=== PATIENT | female | born 1995 | race African-American/Black ===

== ENCOUNTER 2017-03-15 19:33 | Emergency (ER) | payer OTHER ==
[~2017-03-15] VITALS: Ht 167.6 cm; Wt 60.3 kg
[~2017-03-15 19:33] MED LIST: ALBUTEROL2.5 MG/0.1 INH; AMOXICILLIN 50500 MG PO; IBUPROFEN 200200 M1 PO; IBUPROFEN 600600 M1 PO
[2017-03-15] MEDS ORDERED: ACETAMINOPHEN325 M3 PO (19:59)
[2017-03-15] MEDS ORDERED: ACCUNEB SO1.25 MG/1 (20:00)
[2017-03-16 02:04] VITALS: BP 131/88
== END 2017-03-16 09:22 | disposition home or self-care (01) ==
LOC: ER 19:33
DX: Z53.21 Procedure and treatment not carried out due to patient leaving prior to being seen by health care provider (principal)

== ENCOUNTER 2017-11-12 07:03 | Emergency (ER) | payer OTHER ==
[~2017-11-12] VITALS: Ht 167.6 cm; Wt 60.8 kg
[~2017-11-12 07:03] MED LIST changes: +ACCUNEB SO1.25 MG/1; +ACETAMINOPHEN325 M3 PO
[2017-11-12 07:11] VITALS: BP 108/66
[2017-11-12] MEDS ORDERED: AMOXICILLIN 50500 M1 PO (07:15)
[2017-11-12] MEDS ORDERED: PROAIR HFA8.5 GM INH (07:19)
== END 2017-11-12 07:35 | disposition home or self-care (01) ==
LOC: ER 07:03
DX: J02.0 Streptococcal pharyngitis (principal); G43.909 Migraine, unspecified, not intractable, without status migrainosus; J45.909 Unspecified asthma, uncomplicated; Z91.018 Allergy to other foods

== ENCOUNTER 2018-01-18 19:58 | Emergency (ER) | payer OTHER ==
[~2018-01-18] VITALS: Ht 167.6 cm; Wt 60.3 kg
[~2018-01-18 19:58] MED LIST changes: +AMOXICILLIN 50500 M1 PO; +PROAIR HFA8.5 GM INH
[2018-01-18] MEDS ORDERED: IBUPROFEN 600600 M1 PO (21:43)
[2018-01-18 21:52] VITALS: BP 115/80
[2018-07-28] MEDS ORDERED: PHENAZOPYRIDIN200 M2 PO (23:40)
[2018-07-28] MEDS ORDERED: ZOFRAN ODT4 MG PO (23:40)
[2018-07-28] MEDS ORDERED: KEFLEX500 M1 PO (23:40)
== END 2018-01-18 21:55 | disposition home or self-care (01) ==
LOC: ER 19:58
DX: S63.613A Unspecified sprain of left middle finger, initial encounter (principal); J45.909 Unspecified asthma, uncomplicated; G43.909 Migraine, unspecified, not intractable, without status migrainosus; W23.0XXA Caught, crushed, jammed, or pinched between moving objects, initial encounter; Y93.61 Activity, american tackle football; Y92.89 Other specified places as the place of occurrence of the external cause; Y99.8 Other external cause status

== ENCOUNTER 2018-04-21 13:46 | Inpatient (IN) | payer OTHER ==
[~2018-04-21] VITALS: Ht 167.6 cm; Wt 60.8 kg
--- NOTE | ~2018-04-21 | O ---
[facility] [place] [address] OPERATIVE REPORT Name: BROOK LANDRY Room #: 456-P ADM IN M.R.#: [id number] Admission: 04/21/18 Attend Phys: Hermilo Bailey Discharge: Date of : 89 Report #: [id number] THIS REPORT FOR: //name// CC: SUSAN physician/PCP Hermilo Bailey DATE OF SERVICE: 04/22/2018 SURGEON: Tommy Santos M.D. 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 PREOPERATIVE DIAGNOSIS: Left gluteal/perianal abscess. POSTOPERATIVE DIAGNOSIS: Left gluteal/perianal abscess. PROCEDURES: 1. Incision and drainage of left gluteal/perianal abscesses. 2. Rectal exam under general. ANESTHESIA: General laryngeal mask anesthesia. ESTIMATED BLOOD LOSS: 10 mL. SPECIMEN: None. COMPLICATIONS: None appreciated. INDICATIONS FOR PROCEDURE: This is a 23-year-old otherwise healthy female patient who was seen in the [facility] with complaints of buttock pain, favoring her left side. Her pain started the day prior to her admission and radiated down her left lower extremity with progressive worsening. CT of the pelvis revealed a focal low-density collection in the left medial gluteal region posterior to the anus measuring 2 cm in greatest dimension with surrounding subcutaneous fat stranding and overlying skin thickening suggestive of an abscess. The patient reports having had a subjective fever. On exam, she had fullness in the left medial gluteal area. The area was exquisitely tender to palpation and fluctuant. The patient presents now for incision and drainage of a presumed perianal abscess. OPERATIVE FINDINGS: On rectal exam under anesthesia, there was no evidence for a fistula or fissure. Upon opening the cavity, it was 2 cm in greatest dimension consistent with the CT scan. The cavity contained malodorous purulent fluid. DESCRIPTION OF PROCEDURE IN DETAIL: After the risks, benefits and expectations [facility] [address] [place] [address] OPERATIVE REPORT Name: FRANTZBROOK Room #: 456-P [facility] IN M.R.#: [id number] Admission: 04/21/18 Attend Phys: Hermilo Bailey Discharge: Date of : 89 Report #: [id number] of the operation were discussed in detail with the patient, informed consent was obtained. The patient was identified in the preoperative holding area. She has been on scheduled IV antibiotics. The patient was taken to the Operating Room and she was placed in the supine position. SCDs were placed on the patient's bilateral lower extremities and pneumatic compression was initiated. The patient was then given IV sedation and a laryngeal mask was placed without difficulty. She was placed in the dorsal lithotomy position in candy cane stirrups. The perianal area was prepped and draped in the standard sterile fashion. A time-out was performed to identify the correct patient and procedure. Rectal exam under anesthesia was performed first. Findings are as noted above. The planned radial incision was drawn out over the area of greatest fluctuance. Local anesthetic was infiltrated into the skin and subcutaneous tissue. A sharp #15 blade scalpel was used to make the incision into the abscess cavity. The cavity was then digitally probed. Cultures were taken x 2 to be sent for aerobes, anaerobes and fungus. No extensions of the cavity were present. The abscess cavity was then copiously irrigated with normal saline. Bleeding points were made hemostatic with electrocautery. After ensuring hemostasis, the wound was packed with half inch iodoform gauze. Sterile dressings were applied. The patient tolerated the procedure well. She was returned to the supine position, awakened and the laryngeal mask was removed without difficulty. She was taken to the recovery room in stable condition with no apparent intraoperative complications. <ELECTRONICALLY SIGNED> By: Tommy Santos MD, FACS 04/22/18 1828 [id number] Tommy Santos MD, FACS /nt
[2018-04-21 14:00] VITALS: BP 154/86
[2018-04-21 15:01] LABS: ABSOLUTE NEUTROPHILS 6.1 thou/uL (1.4-8.2); BASOPHILS 0.5 % (0.0-2.0); EOSINOPHILS 0.9 % (0.0-3.0); HEMATOCRIT 39.8 % (37.0-47.0); HEMOGLOBIN 13.3 gm/dL (12.0-15.0); LYMPHOCYTES 22.4 % (24.0-44.0); MCH 29.9 pg (26.0-34.0); MCHC 33.5 g/dL (28.0-37.0); MCV 89.3 fL (80.0-100.0); MONOCYTES 9.3 % (1.0-8.0); PLATELET COUNT 191 thou/uL (150-400); POLYS 66.9 % (36.0-66.0); RBC 4.46 mil/uL (4.20-5.00); WBC 9.1 thou/uL (4.0-11.0)
[2018-04-21 15:08] LABS: CALCIUM 9.2 mg/dL (8.5-10.1); CREATININE 0.9 mg/dL (0.6-1.0); POTASSIUM 3.9 mmol/L (3.5-5.1)
[2018-04-21 17:15] VITALS: BP 154/86
[2018-04-21 17:56] VITALS: BP 148/90
[2018-04-21 18:13] VITALS: BP 111/66
[2018-04-21 21:56] VITALS: BP 135/79
[2018-04-22] VITALS (7 sets, daily range): BP systolic 91–122; BP diastolic 50–81
[2018-04-22] MEDS ORDERED: SENNA-S TABLET1 EACH PO (08:22)
[2018-04-22] MEDS ORDERED: HYDROCODONE-AP1 EAC6 PO (08:22)
[2018-04-22] MEDS ORDERED: AUGMENTIN 875-1 EACH PO (08:22)
== END 2018-04-22 22:00 | disposition home or self-care (01) | DRG 349 ==
LOC: ER 13:46 → EROBS 16:53 → 4W 16:53
PROVIDERS: Physician Assistant
PROC: 0D9Q0ZZ Drainage of Anus, Open Approach (ICD-10-PCS; principal; 2018-04-22)
DX: K61.0 Anal abscess (principal); G43.909 Migraine, unspecified, not intractable, without status migrainosus; G44.89 Other headache syndrome; J45.909 Unspecified asthma, uncomplicated; Z91.02 Food additives allergy status; Z79.899 Other long term (current) drug therapy
CPT/HCPCS: 10040; 50010; 50101; 50386; 62110; 62900; 70005

== ENCOUNTER 2019-02-18 13:31 | Emergency (ER) | payer OTHER ==
[~2019-02-18] VITALS: Ht 167.6 cm; Wt 58.1 kg
[~2019-02-18 13:31] MED LIST changes: +AUGMENTIN 875-1 EACH PO; +HYDROCODONE-AP1 EAC6 PO; +KEFLEX500 M1 PO; +PHENAZOPYRIDIN200 M2 PO; +SENNA-S TABLET1 EACH PO; +ZOFRAN ODT4 MG PO
[2019-02-18] MEDS ORDERED: VENTOLIN HFA 1818 GM INH (13:40)
[2019-02-18 14:16] LABS: HEMATOCRIT 34.8 % (37.0-47.0); HEMOGLOBIN 11.8 gm/dL (12.0-15.0); MCH 30.9 pg (26.0-34.0); MCHC 33.8 g/dL (28.0-37.0); MCV 91.5 fL (80.0-100.0); RBC 3.8 mil/uL (4.20-5.00); RDW 13.2 % (10.5-14.5); WBC 4.6 thou/uL (4.0-11.0)
[2019-02-18 14:20] LABS: CALCIUM 8.7 mg/dL (8.5-10.1); CREATININE 0.9 mg/dL (0.6-1.0); POTASSIUM 4.3 mmol/L (3.5-5.1)
[2019-02-18 14:26] LABS: ALBUMIN 3.5 g/dL (3.4-5.0); TOTAL BILIRUBIN 0.6 mg/dL (<0.1-1.0); TOTAL PROTEIN 7.2 g/dL (6.4-8.2)
[2019-02-18] MEDS ORDERED: VISTARIL 25 MG25 M1 PO (14:48)
[2019-02-18] MEDS ORDERED: PREDNISONE 20 M20 MG PO (14:48)
[2019-02-18 14:49] LABS: URINE BILIRUBIN NEGATIVE (Negative); URINE BLOOD NEGATIVE (Negative); URINE CLARITY CLEAR; URINE COLOR YELLOW; URINE GLUCOSE-RANDOM* NEGATIVE (Negative); URINE KETONES NEGATIVE (Negative); URINE LEUKOCYTES-REFLEX NEGATIVE (Negative); URINE NITRITE-REFLEX NEGATIVE (Negative); URINE PROTEIN (DIPSTICK) TRACE (Negative); URINE SPECIFIC GRAVITY 1.025 (1.005-1.035); URINE UROBILINOGEN 0.2 E.U./dl (0.2-1.0)
[2019-02-18 15:17] VITALS: BP 119/70
--- NOTE | 2019-02-20 13:16 | EKG ---
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1995 Requested By: Fly Sinha Order Number: [id number] MD: Abdoul Valenzuela Measurements Intervals [place] Rate: 88 P: 70 ID: [id number] QRS: 55 QRSD: 99 T: 59 QT: 362 QTc: 438 Interpretive Statements Sinus rhythm Right ventricular conduction delay Compared to ECG 03/19/2013 00:12:24 No significant change was found Electronically Signed On 02-20-2019 13:16:44 CDT by Abdoul Valenzuela [email or web address] ��������������������������������������������� <ELECTRONICALLY SIGNED> ���������������������������������������� By: Abdoul Valenzuela MD, [facility] ��������������������������������������������� 02/20/19 1316 1341 1341 Abdoul Valenzuela MD, FACC /EPI
== END 2019-02-18 15:19 | disposition home or self-care (01) ==
LOC: ER 13:31
PROVIDERS: Physician Assistant
DX: J45.901 Unspecified asthma with (acute) exacerbation (principal); F41.9 Anxiety disorder, unspecified; G43.909 Migraine, unspecified, not intractable, without status migrainosus; Z91.018 Allergy to other foods

== ENCOUNTER 2021-03-07 10:23 | Emergency (ER) | payer OTHER ==
[~2021-03-07] VITALS: Ht 167.6 cm; Wt 61.2 kg
[~2021-03-07 10:23] MED LIST changes: +PREDNISONE 20 M20 MG PO; +VENTOLIN HFA 1818 GM INH; +VISTARIL 25 MG25 M1 PO
[2021-03-07] MEDS ORDERED: ADVAIR 100-501 EACH INH (10:41)
[2021-03-07] MEDS ORDERED: MOBIC7.5 MG PO (11:53)
[2021-03-07 12:05] VITALS: BP 114/72
--- NOTE | 2021-03-08 07:04 | EKG ---
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1995 Requested By: Kike Skaggs Order Number: [id number] MD: Alessandro Medina Measurements Intervals [place] Rate: 66 P: 59 NM: 148 QRS: 49 QRSD: 81 T: 60 QT: 374 QTc: 392 Interpretive Statements Sinus rhythm Ventricular premature complex Compared to ECG 02/18/2019 13:41:04 Ventricular premature complex(es) now present Electronically Signed On 03-08-2021 7:04:17 CDT by Alessandro Medina [email or web address] <ELECTRONICALLY SIGNED> By: Alessandro Medina MD, [facility] 03/08/21 0704 1027 1027 Alessandro Medina MD, FACC /EPI
== END 2021-03-07 12:05 | disposition home or self-care (01) ==
LOC: ER 10:23
DX: M94.0 Chondrocostal junction syndrome [Tietze] (principal); G43.909 Migraine, unspecified, not intractable, without status migrainosus; J45.909 Unspecified asthma, uncomplicated; Z91.018 Allergy to other foods; Z79.899 Other long term (current) drug therapy

== ENCOUNTER 2021-07-22 15:10 | Emergency (ER) | payer OTHER ==
[~2021-07-22] VITALS: Ht 167.6 cm; Wt 63.5 kg
[~2021-07-22 15:10] MED LIST changes: +ADVAIR 100-501 EACH INH; +MOBIC7.5 MG PO
[2021-07-22 15:11] VITALS: BP 121/85
[2021-07-22] MEDS ORDERED: KETOCONAZOLE15 GM TOP (15:53)
== END 2021-07-22 16:03 | disposition home or self-care (01) ==
LOC: ER 15:10
DX: L29.9 Pruritus, unspecified (principal); R21 Rash and other nonspecific skin eruption; J45.909 Unspecified asthma, uncomplicated; G43.909 Migraine, unspecified, not intractable, without status migrainosus; Z79.1 Long term (current) use of non-steroidal anti-inflammatories (NSAID); Z79.891 Long term (current) use of opiate analgesic; Z79.51 Long term (current) use of inhaled steroids; Z79.899 Other long term (current) drug therapy; Z91.018 Allergy to other foods